=== PATIENT | female | born 1980 | race Caucasian/White ===

== ENCOUNTER 2016-06-15 09:11 | Emergency (ER) | payer OTHER ==
[~2016-06-15] VITALS: Ht 154.9 cm; Wt 86.2 kg
[~2016-06-15 09:11] MED LIST: ALBUTEROL0.09 MG/A2 INH; BENADRYL 50 MG50 MG PO; BENTYL 10 MG CA10 MG PO; BENTYL20 MG PO; BENZTROPINE MESY1 M1 PO; BENZTROPINE MESY1 MG PO; BENZTROPINE1 MG PO; BIAXIN FILMTAB500 MG PO; BUSPIRONE HCL30 M1 PO; CATAPRES 0.1MG0.1 MG PO; CLONIDINE HCL0.1 MG PO; CLONIDINE0.1 MG PO; DILAUDID2 MG PO; ENDOCET 325 MG-1 TA1 PO; FLUOXETINE HCL20 M2 PO; INVEGA6 MG PO; LEVOTHYROXIN0.025 M1 PO; LEVOXYL75 MCG PO; LINZESS145 MC1 PO; LIORESAL 10MG T10 MG PO; LITHIUM CARBON300 M3 PO; LORAZEPAM1 M1 PO; MEDROL DOSEPAK1 PAC PO; MELATONIN1 MG PO; MELATONIN3 MG PO; MOTRIN 600 MG600 MG PO; MOTRIN600 MG PO; NORCO 325 MG-51 TAB PO; NYSTATIN100000 U/M PO; OXYCODONE5 M1 PO; PANTOPRAZOLE SO40 M1 PO; PERCOCET 325 MG1 TA2 PO; PRAVASTATIN SOD20 M2 PO; PREDNISONE 20MG20 MG PO; PROAIR HFA0.09 MG/Ac PO; PYRIDIUM100 MG PO; QUETIAPINE FUM300 MG PO; QUETIAPINE FUM400 M1 PO; TRI-PREVIFEM 351 TAB PO; TYLENOL #31 TAB PO; VICODIN5-300 PO; ZOLPIDEM TARTRA10 M1 PO
--- NOTE | 2016-06-15 09:32 | ED INFLUENZA/URI COMPLAINT ---
History of Present Illness General Chief Complaint: Upper Respiratory Sx/Fever Stated Complaint: URI AND MANY OTHER PAIN COMPLAINTS Source: patient, old records Exam Limitations: no limitations Vital Signs & Intake/Output Vital Signs & Intake/Output Vital Signs Date Time Temp Pulse Resp B/P Pulse O2 O2 Flow FiO2 Ox Delivery Rate 06/15 1214 80 18 122/82 99 Room Air 06/15 1111 98.0 85 18 120/78 98 Room Air 06/15 0915 98.0 102 16 113/81 97 Room Air Allergies Coded Allergies: Penicillins (Intermediate, HIVES 08/03/15) amoxicillin (Intermediate, HIVES 08/03/15) shellfish derived (Intermediate, HIVES 08/03/15) ciprofloxacin (From CIPRO) (Mild, RASH 08/03/15) guaifenesin (From MUCINEX) (Mild, RASH 08/03/15) dextromethorphan (ITCHY, RASH, HIVES 08/03/15) sulfamethoxazole (From BACTRIM) (HIVES 08/03/15) trimethoprim (From BACTRIM) (HIVES 08/03/15) Reconcile Medications Benzonatate (Tessalon Perle) 100 MG CAPSULE 1 CAP PO TID PRN COUGH Benztropine Mesylate 1 MG TABLET 1 TAB PO BID SIDE EFFECTS OF SEROQUEL ( Reported) Buspirone HCl 30 MG TABLET 1 TAB PO BID BIPOLAR (Reported) Clarithromycin (Biaxin) 500 MG TABLET 1 TAB PO BID BRONCHITIS Clonidine HCl 0.1 MG TABLET 1 TAB PO BID MENTAL HEALTH (Reported) Fenofibric Acid (Trilipix) 135 MG CAPSULE.DR 1 CAP PO DAILY TRIGLYCERIDES ( Reported) Fluoxetine HCl 20 MG CAPSULE 1 CAP PO DAILY OCD (Reported) Levothyroxine Sodium (Levoxyl) 75 MCG TABLET 1 TAB PO DAILY AC THYROID ( Reported) Linaclotide (Linzess) 145 MCG CAPSULE 1 CAP PO DAILY IBS (Reported) Lorazepam 1 MG TABLET 1 TAB PO TID ANXIETY (Reported) Oxycodone HCl/Acetaminophen (Percocet 5-325 MG Tablet) 5 MG-325 MG TABLET 1 TAB PO BID BREAKTHROUGH PAIN Paliperidone (Invega) 6 MG TAB.ER.24 1 TAB PO QPM MENTAL HEALTH (Reported) Pantoprazole Sodium 40 MG TABLET.DR 1 TAB PO DAILY GI (Reported) Pravastatin Sodium 20 MG TABLET 1 TAB PO DAILY CHOLESTEROL (Reported) Pregabalin (Lyrica) 225 MG CAPSULE 1 CAP PO BID PAIN (Reported) Quetiapine Fumarate 400 MG TABLET 1 TAB PO QPM MENTAL HEALTH (Reported) Zolpidem Tartrate 10 MG TABLET 1 TAB PO QPM SLEEP (Reported) Triage Note: PT STATES SHE HAS A NUMBER OF THINGS WRONG WITH HER TODAY. PT STATES SHE HAS A COUGH THAT MAKES HER HEAD POUND. PT STATES SHE HAS KIDNEY PAIN AND PAIN FROM HER ENDOMETRIOSIS. Triage Nurses Notes Reviewed? yes Onset: Gradual Duration: day(s): (2), constant Timing: recent history Severity: mild, moderate Severity Numbers: 5 No Modifying Factors: none Associated Symptoms: cough, muscle aches, nasal congestion : No Patient currently breastfeeds: No HPI: 36-year-old female with history of recurrent kidney infections bipolar anxiety fibromyalgia and endometriosis presents to emergency room complaining of a productive cough associated with congestion and sore throat for the past 2 days for which she has not sought care or taken any brxt-jok-yvcrlut medications. She denies fever chills or reports a multiple sick contacts at home with similar symptoms. No recent dental work no difficulty breathing or swallowing. No history of asthma she does not smoke no chest pain. The patient is also complaining of an exacerbation of her chronic abdominal pain left lower quadrant she that she states is constantly there however more painful than normal. Her menstrual cycle is now, she is normally followed by her primary care physician for her endometriosis and states this feels similar. She took Motrin for the pain without improvement. She reports that she's been seen here multiple times in the past for similar symptoms and was prescribed pain medication that helped. She is also complaining of right flank pain, she denies any urinary urgency frequency dysuria hematuria. (ANNA AGVIN) Past History Travel History Traveled to [place] past 21 day No Medical History Any Pertinent Medical History? 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 No (ANNA GAVIN) Review of Systems Review of Systems Constitutional: Reports: see HPI. All Other Systems: Reviewed and Negative Comments Review of systems: See HPI, All other systems negative. Constitutional, no chills no fever, no malaise HEENT: No visual changes sore throat congestion, no ear pain Cardiovascular: No chest pain , no palpitation , Skin, no rashes, no change in skin Respiratory: No dyspnea cough no sputum no hemoptysis GI: No nausea no vomiting, no diarrhea, no bloating/constipation : No dysuria No hematuria, no frequency, no discharge Muscle skeletal: No joint pain, no joint swelling, back pain, no neck pain, Neurologic: No numbness no headache Psych: No stress no anxiety no depression,. Heme/endocrine: No bruising no bleeding Immunology: No lymphadenopathy (ANNA GAVIN) Physical Exam Physical Exam General Appearance: well developed/nourished, alert, awake Ears, Nose, Throat: normal ENT inspection, moist mucous membrane, hearing grossly normal, Tympanic normal, pharynx normal Comments: Well-developed well-nourished person in no acute distress Head/Face: Atraumatic, no maxillary/frontal sinus tenderness, no facial swelling Eyes: PERRL, EOMI, no conjunctival injection. No nystagmus Ear:External auditory canal and Tympanic membranes clear, no erythema, no FB. Nose: atraumatic.Normal inspection: No bleeding, no septal hematoma Throat: Moist mucous membranes.Pharynx normal. No pharyngeal erythema/exudate seen. No stridor/drooling or assymetry. No swelling or edema. Neck: Supple, no lymphadenopathy, FROM Back: Nontender, R SIDED CVA tenderness. Full range of motion Cardiovascular: Regular rate and rhythms no murmurs rubs or gallops, normal JVP Respiratory: Chest nontender.There were no bony deformities, no asymmetry. No respiratory distress. Patient speaking in full complete sentences. Breath sounds clear to auscultation bilaterally: NO W/R/R Abdomen: Soft, nontender nondistended, no appreciable organomegaly. Normal bowel sounds. No rebound/guarding, Extremity: No edema, full range of motion of extremities, normal and equal pulses bilaterally, 5 out of 5 strength noted to bilateral upper and lower extremities Neuro: Alert oriented x3, motor sensory normal,There were no obvious focal neurologic abnormalities. Skin: No appreciable rash on exposed skin, skin is warm and dry. Psych: Mood and affect is normal, memory and judgment is normal. Core Measures Severe Sepsis Present: No Septic Shock Present: No (ANNA GAVIN) Progress Differential Diagnosis: influenza, otitis, pneumonia, pharyngitis, sinusitis, BRONCHITIS, PYELO, UTI, , ECTOPIC, CHRONIC ABD PAIN, ENDOMETRIOSIS Plan of Care: Orders Procedure Date/time Status URINE 06/15 935 Complete URINALYSIS 06/15 935 Complete Laboratory Tests 06/15/16 1104: Urine Color YEL, Urine Clarity CLEAR, Urine pH 6.5, Ur Specific [place] 1.020, Urine Protein NEG, Urine Ketones NEG, Urine Nitrite NEG, Urine Bilirubin NEG, Urine Urobilinogen 0.2, Ur Leukocyte Esterase NEG, Ur Microscopic EXAM NOT REQUIRED, Urine Hemoglobin NEG, Urine Glucose NEG, Urine Test NEGATIVE Labs ordered Percocet 1 ordered. Old records read patient is seen numerous times the past for similar symptoms., I discussed with her at length that I do not believe she requires an x-ray or blood work at this time patient's pain is chronic in nature and is not worse she denies any nausea vomiting diarrhea fevers or chills After patient was medicated Percocet she states that she cannot urinate at this time and does not want to to stay to wait. Patient is provided with water and I advised her given her history of recurrent kidney infections and right flank pain that we need a urine sample . I discussed with her her lab results and that she follow up with her primary care physician this week prescription for Percocet and BIAXIN and and Tessalon Perles provided (ANNA GAVIN) Initial ED EKG: none (ANNA GAVIN) Departure Departure Time of Disposition: 1010 Disposition: HOME OR SELF CARE Condition: Stable Clinical Impression Primary Impression: Bronchitis Secondary Impressions: Chronic abdominal pain Referrals: RODRIGO DOYLE (PCP/Family) Additional Instructions: FOLLOW UP WITH YOUR PMD THIS WEEK. BIAXIN DIRECTED, TESSALON PERLES FOR COUGH. PERCOCET FOR BREAKTHROUGH PAIN- USE CAUTION THIS IS A NARCOTIC AND HIGHLY ADDICTIVE- NO DRIVING OR DRINKING ALCOHOL WHILE TAKING. THESE MEDICATIONS WERE SENT TO YOUR PHARMACY. CONTINUE TAKING IBUPROFEN 800MG EVERY 8 HOURS. Departure Forms: Customer Survey General Discharge Information Prescriptions: Current Visit Scripts Oxycodone HCl/Acetaminophen (Percocet 5-325 MG Tablet) 1 TAB PO BID #10 TAB Benzonatate (Tessalon Perle) 1 CAP PO TID PRN COUGH #30 CAP Clarithromycin (Biaxin) 1 TAB PO BID #14 TAB (ANNA GAVIN) PA/LOWER SCHOOL MUSIC TEACHER Co-Sign Statement Statement: ED Attending supervision documentation- [] I saw and evaluated the patient. I have also reviewed all the pertinent lab results and diagnostic results. I agree with the findings and the plan of care as documented in the PA's/LOWER SCHOOL MUSIC TEACHER's documentation. x I have reviewed the ED Record and agree with the PA's/LOWER SCHOOL MUSIC TEACHER's documentation. [] Additions or exceptions (if any) to the PAs/LOWER SCHOOL MUSIC TEACHER's note and plan are summarized below: [] (DRAYA GATICA,MARTA)
[2016-06-15] MEDS ORDERED: PERCOCET 5-3251 EACH PO (10:14)
[2016-06-15] MEDS ORDERED: BIAXIN500 M1 PO (10:14)
[2016-06-15] MEDS ORDERED: TESSALON PERLE100 M1 PO (10:14)
[2016-06-15] MEDS ORDERED: LYRICA225 M1 PO (10:20)
[2016-06-15] MEDS ORDERED: TRILIPIX135 M1 PO (10:21)
[2016-06-15 12:14] VITALS: BP 122/82
[2016-10-23] MEDS ORDERED: ZOFRAN4 M2 PO (13:27)
[2016-10-23] MEDS ORDERED: KETOROLAC TROME10 M1 PO (13:27)
== END 2016-06-15 10:11 ==
LOC: ERH 09:11
DX: J40 Bronchitis, not specified as acute or chronic (principal); G89.29 Other chronic pain; R10.32 Left lower quadrant pain; Z87.891 Personal history of nicotine dependence
CPT/HCPCS: 81003; 81025

== ENCOUNTER 2016-07-09 14:37 | Emergency (ER) | payer OTHER ==
[~2016-07-09] VITALS: Ht 154.9 cm; Wt 86.2 kg
[~2016-07-09 14:37] MED LIST changes: +BIAXIN500 M1 PO; +LYRICA225 M1 PO; +PERCOCET 5-3251 EACH PO; +TESSALON PERLE100 M1 PO; +TRILIPIX135 M1 PO
[2016-07-09 14:40] VITALS: BP 127/86
--- NOTE | 2016-07-09 15:25 | ED GENERAL ADULT ---
History of Present Illness General Chief Complaint: General Adult Stated Complaint: NAUSEA Source: patient, old records Exam Limitations: no limitations Vital Signs & Intake/Output Vital Signs & Intake/Output Vital Signs Date Time Temp Pulse Resp B/P Pulse O2 O2 Flow FiO2 Ox Delivery Rate 07/09 1440 96.2 86 18 127/86 98 Room Air Room Air Allergies Coded Allergies: Penicillins (Intermediate, HIVES 08/03/15) amoxicillin (Intermediate, HIVES 08/03/15) shellfish derived (Intermediate, HIVES 08/03/15) ciprofloxacin (From CIPRO) (Mild, RASH 08/03/15) guaifenesin (From MUCINEX) (Mild, RASH 08/03/15) dextromethorphan (ITCHY, RASH, HIVES 08/03/15) sulfamethoxazole (From BACTRIM) (HIVES 08/03/15) trimethoprim (From BACTRIM) (HIVES 08/03/15) Reconcile Medications Benztropine Mesylate 1 MG TABLET 1 TAB PO BID SIDE EFFECTS OF SEROQUEL ( Reported) Buspirone HCl 30 MG TABLET 1 TAB PO BID BIPOLAR (Reported) Clonidine HCl 0.1 MG TABLET 1 TAB PO BID MENTAL HEALTH (Reported) Fenofibric Acid (Trilipix) 135 MG CAPSULE.DR 1 CAP PO DAILY TRIGLYCERIDES ( Reported) Fluoxetine HCl 20 MG CAPSULE 1 CAP PO DAILY OCD (Reported) Hyoscyamine (Levsin) 0.125 MG TABLET 1 TAB PO Q4 PRN abdominal discomfort Levothyroxine Sodium (Levoxyl) 75 MCG TABLET 1 TAB PO DAILY AC THYROID ( Reported) Linaclotide (Linzess) 145 MCG CAPSULE 1 CAP PO DAILY IBS (Reported) Lorazepam 1 MG TABLET 1 TAB PO TID ANXIETY (Reported) Nystatin 100,000 UNIT/ML ORAL.SUSP 5 ML PO 4 TIMES/DAY thrush Ondansetron (Zofran Odt) 4 MG TAB.RAPDIS 1 TAB SL Q8HR PRN nausea Paliperidone (Invega) 6 MG TAB.ER.24 1 TAB PO QPM MENTAL HEALTH (Reported) Pantoprazole Sodium 40 MG TABLET.DR 1 TAB PO DAILY GI (Reported) Pravastatin Sodium 20 MG TABLET 1 TAB PO DAILY CHOLESTEROL (Reported) Pregabalin (Lyrica) 225 MG CAPSULE 1 CAP PO BID PAIN (Reported) Quetiapine Fumarate 400 MG TABLET 1 TAB PO QPM MENTAL HEALTH (Reported) Zolpidem Tartrate 10 MG TABLET 1 TAB PO QPM SLEEP (Reported) Triage Note: TRIAGE: 36 Y/O FEMALE PRESENTS C/O +NAUSEA SINCE MONDAY MORNING. "ALL OVER ABDOMINAL PAIN", POOR PO INTAKE X DAYS, METALLIC TASTE IN MOUTH. "SOMETHING'S WRONG WITH ME, BUT I DON'T KNOW WHAT. IT'S NOT NORMAL." Triage Nurses Notes Reviewed? yes Onset: Gradual Duration: day(s): (4) Timing: recent history Injury Environment: home Severity: moderate Severity Numbers: 7 No Modifying Factors: none Associated Symptoms: nausea : No Patient currently breastfeeds: No HPI: Patient is a 36-year-old female with history of bipolar, depression, anxiety and endometriosis presenting to the emergency Department chief complaint of diffuse abdominal discomfort, nausea Going on for the past 4 days progressively getting worse. Denies any vomiting. Denies diarrhea or constipation. Denies any urinary frequency or urgency or dysuria. Symptoms currently moderate. Nothing seems to make it better or worse. Denies trying to take anything at home to help with nausea. No recent travel or sick contacts. She reports that the pain feels similar to endometriosis pain but worse. She has not seen an NEWS GATHERING TECHNICIAN nonpassive areas as her primary care physician does the Pap smears. Denies any vaginal discharge. denies chance of std. (BOAZ RUIZ) Past History Travel History Traveled to [place] past 21 day No Medical History Any Pertinent Medical History? 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 No (BOAZ RUIZ) Review of Systems Review of Systems Constitutional: Reports: chills. Comments Review of systems: See HPI, All other systems negative. Constitutional, no weight loss HEENT: No visual changes no sore throat no congestion Cardiovascular: No chest pain ,palpitation , orthopnea or ankle swelling Skin, no jaundice no rashes Respiratory: No dyspnea cough sputum or hemoptysis GI: No diarrhea no vomiting : No dysuria No hematuria Muscle skeletal: no back pain, no neck pain, Neurologic: No numbness no confusion, no headache Psych: No stress anxiety or depression,. Heme/endocrine: No bruising no bleeding no polyuria or polydipsia Immunology: No splenectomy or history of AIDS (BOAZ RUIZ) Physical Exam Physical Exam General Appearance: no apparent distress, alert, awake, anxious, comfortable, obese Comments: Well-developed well-nourished person in no acute distress HEENT: Pupils equally round and reactive to light and accommodation. Nose is atraumatic. External auditory canal and Tympanic membranes clear. Pharynx normal. No swelling or edema. Very dry oral mucosa, white coating noted over the tongue, unable to remove it with a tongue blade. Neck: Normal inspection Back: Nontender, no CVA tenderness. Full range of motion Cardiovascular: Regular rate and rhythms no murmurs rubs or gallops, normal JVP Respiratory: Chest nontender. No respiratory distress.breath sounds clear to auscultation bilaterally Abdomen: Soft, obese, diffuse tenderness to palpation, more focally tender around the periumbilical and left lower quadrant, nondistended, no appreciable organomegaly. Normal bowel sounds. No ascites Extremity: No edema Neuro: Alert oriented x3 Skin: No appreciable rash on exposed skin, skin is warm and dry. Psych: Mood and affect is normal, memory and judgment is normal. Core Measures ACS in differential dx? No CVA/TIA Diagnosis: No Severe Sepsis Present: No Septic Shock Present: No (BOAZ RUIZ) Progress Differential Diagnoses I considered the following diagnoses in my evaluation of the patient: Gastritis , dehydration, electrolyte abnormality, pancreatitis, cholecystitis, appendicitis, diverticulitis, thrash Plan of Care: Orders Procedure Date/time Status FingerStick- Glucose 07/09 1526 Active URINE 07/09 1526 Complete URINALYSIS 07/09 1526 Complete LIPASE 07/09 1526 Complete COMPREHENSIVE METABOLIC PANEL 07/09 1526 Complete CBC WITHOUT DIFFERENTIAL 07/09 1526 Complete AMYLASE 07/09 1526 Complete Current Medications Sig/Evelio Start time Last Medication Dose Stop Time Status Admin Ondansetron HCl 4 MG ONCE ONE 07/09 1530 CAN (Zofran) 07/09 1531 Laboratory Tests 07/09/16 1641: Urine Color YEL, Urine Clarity HAZY H, Urine pH 6.0, Ur Specific [place] >= 1.030, Urine Protein TRACE H, Urine Ketones TRACE H, Urine Nitrite NEG, Urine Bilirubin NEG, Urine Urobilinogen 0.2, Ur Leukocyte Esterase NEG, Ur Microscopic SEDIMENT EXAMINED, Urine RBC RARE, Urine WBC RARE, Ur Epithelial Cells MANY H, Urine Bacteria MOD H, Urine Mucus MANY H, Urine Hemoglobin NEG, Urine Glucose NEG, Urine Test NEGATIVE 07/09/16 1537: Anion Gap 14, Estimated GFR 51 L, BUN/Creatinine Ratio 7.5, Glucose 84, Calcium 10.1, Total Bilirubin 0.5, AST 29, ALT 29, Alkaline Phosphatase 61, Total Protein 7.9, Albumin 4.7, Globulin 3.2, Albumin/Globulin Ratio 1.5, Amylase < 30 L, Lipase 20 L, CBC w Diff NO MAN DIFF REQ, RBC 4.16 L, MCV 91.7, MCH 31.0, RDW 14.0, MPV 7.7, Gran % 60.1, Lymphocytes % 31.5, Monocytes % 6.7, Eosinophils % 1.3, Basophils % 0.4, Absolute Granulocytes 4.2, Absolute Lymphocytes 2.2, Absolute Monocytes 0.5, Absolute Eosinophils 0.1, Absolute Basophils 0, PUBS MCHC 33.8 Initial ED EKG: none Comments: 07/09/2016 3:36:38 PM pt medicated with IV fluids, Zofran, Toradol and arrival. With this lab work first. Patient has had multiple CT scans over the past several years. 07/09/2016 5:07:29 PM patient is afebrile and no elevation in white blood count that. Blood work is essentially unremarkable. No change from baseline. Likely viral gastritis. Patient will be treated symptomatically. Patient will also be treated for thrush, she'll follow up with the PCP next week or return for worsening symptoms. No clinical indication for imaging at this time. (GILBERT ESPINOSA,BOAZ) Departure Departure Time of Disposition: 1702 Disposition: HOME OR SELF CARE Condition: Stable Clinical Impression Primary Impression: Abdominal pain Qualifiers: Abdominal location: generalized Qualified Code: R10.84 - Generalized abdominal pain Secondary Impressions: Nausea, Thrush Referrals: RODRIGO DOYLE (PCP/Family) Additional Instructions: Follow-up with your primary care physician call to make an appointment. Increase fluids. Take Zofran asks For nausea, take Levsin as prescribed abdominal discomfort. Return for worsening symptoms or concerns. Departure Forms: Customer Survey D/C INS-APPENDICITIS EXCLUSION General Discharge Information Prescriptions: Current Visit Scripts Ondansetron (Zofran Odt) 1 TAB SL Q8HR PRN nausea #10 TAB Hyoscyamine (Levsin) 1 TAB PO Q4 PRN abdominal discomfort #30 TAB Nystatin 5 ML PO 4 TIMES/DAY #200 ML (BOAZ RUIZ) PA/PANEL EDGE SEALER Co-Sign Statement Statement: ED Attending supervision documentation- [] I saw and evaluated the patient. I have also reviewed all the pertinent lab results and diagnostic results. I agree with the findings and the plan of care as documented in the PA's/PANEL EDGE SEALER's documentation. x I have reviewed the ED Record and agree with the PA's/PANEL EDGE SEALER's documentation. [] Additions or exceptions (if any) to the PAs/PANEL EDGE SEALER's note and plan are summarized below: [] (DARYA GATICA,MARTA) Critical Care Note Critical Care Note Critical Care Time: non-applicable (BOAZ RUIZ)
[2016-07-09 15:58] LABS: ABSOLUTE BASOPHIL COUNT 0 /CUMM (0.0-0.2); ABSOLUTE EOSINOPHIL COUNT 0.1 /CUMM (0.0-0.7); ABSOLUTE GRANULOCYTE CT 4.2 /CUMM (1.4-6.5); ABSOLUTE LYMPH COUNT 2.2 /CUMM (1.2-3.4); ABSOLUTE MONOCYTE COUNT 0.5 /CUMM (0.10-0.60); BASOPHIL % 0.4 % (0.0-2.0); EOSINOPHIL % 1.3 % (0-5); GRANULOCYTE % 60.1 % (42.2-75.2); HEMATOCRIT 38.2 % (37-47); MEAN CORPUSCULAR HGB CONC 33.8 G/DL (33.0-37.0); MEAN CORPUSCULAR VOLUME 91.7 FL (81.0-99.0); MEAN PLATELET VOLUME 7.7 FL (7.4-10.4); PLATELET COUNT 331 /CUMM (130-400); RED BLOOD CELL CT 4.16 /CUMM (4.20-5.40); WHITE BLOOD CELL COUNT 7.1 /CUMM (4.8-10.8)
[2016-07-09] MEDS ORDERED: NYSTATIN100000 UNI PO (17:05)
[2016-07-09] MEDS ORDERED: LEVSIN0.125 M1 PO (17:05)
[2016-07-09] MEDS ORDERED: ZOFRAN ODT4 M1 SL (17:05)
[2016-10-23] MEDS ORDERED: KETOROLAC TROME10 M1 PO (13:27)
[2016-10-23] MEDS ORDERED: ZOFRAN4 M2 PO (13:27)
== END 2016-07-09 17:22 ==
LOC: ERH 14:37
PROVIDERS: Physician Assistant
DX: R10.84 Generalized abdominal pain (principal); R11.0 Nausea; B37.0 Candidal stomatitis
CPT/HCPCS: 81001; 81025; 96361; 96374; 96375; J1885; J2405

== ENCOUNTER 2016-07-13 15:21 | Emergency (ER) | payer OTHER ==
[~2016-07-13] VITALS: Ht 154.9 cm; Wt 86.2 kg
[~2016-07-13 15:21] MED LIST changes: +LEVSIN0.125 M1 PO; +NYSTATIN100000 UNI PO; +ZOFRAN ODT4 M1 SL
--- NOTE | 2016-07-13 17:33 | ED GI/GU/ABDOMINAL COMPLAINT ---
History of Present Illness General Chief Complaint: Abdominal Pain/Flank Pain Stated Complaint: N/V, ABD PAIN Source: patient, old records Exam Limitations: no limitations Vital Signs & Intake/Output Vital Signs & Intake/Output Vital Signs Date Time Temp Pulse Resp B/P Pulse O2 O2 Flow FiO2 Ox Delivery Rate 07/13 1802 98.4 60 16 126/68 97 Room Air 07/13 1554 98.2 85 20 134/83 97 Room Air Room Air Allergies Coded Allergies: Penicillins (Intermediate, HIVES 07/13/16) amoxicillin (Intermediate, HIVES 07/13/16) shellfish derived (Intermediate, HIVES 07/13/16) ciprofloxacin (From CIPRO) (Mild, RASH 07/13/16) guaifenesin (From MUCINEX) (Mild, RASH 07/13/16) dextromethorphan (ITCHY, RASH, HIVES 07/13/16) sulfamethoxazole (From BACTRIM) (HIVES 07/13/16) trimethoprim (From BACTRIM) (HIVES 07/13/16) Reconcile Medications Benztropine Mesylate 1 MG TABLET 1 TAB PO BID SIDE EFFECTS OF SEROQUEL ( Reported) Buspirone HCl 30 MG TABLET 1 TAB PO BID BIPOLAR (Reported) Ciprofloxacin HCl (Cipro) 500 MG TABLET 1 TAB PO BID COLITIS Clonidine HCl 0.1 MG TABLET 1 TAB PO BID MENTAL HEALTH (Reported) Fenofibric Acid (Trilipix) 135 MG CAPSULE.DR 1 CAP PO DAILY TRIGLYCERIDES ( Reported) Fluoxetine HCl 20 MG CAPSULE 1 CAP PO DAILY OCD (Reported) Hyoscyamine (Levsin) 0.125 MG TABLET 1 TAB PO Q4 PRN abdominal discomfort Levothyroxine Sodium (Levoxyl) 75 MCG TABLET 1 TAB PO DAILY AC THYROID ( Reported) Linaclotide (Linzess) 145 MCG CAPSULE 1 CAP PO DAILY IBS (Reported) Lorazepam 1 MG TABLET 1 TAB PO TID ANXIETY (Reported) Metronidazole (Flagyl) 500 MG TABLET 1 TAB PO TID COLITIS Nystatin 100,000 UNIT/ML ORAL.SUSP 5 ML PO 4 TIMES/DAY thrush Ondansetron (Zofran Odt) 4 MG TAB.RAPDIS 1 TAB SL TID NAUSEA Ondansetron (Zofran Odt) 4 MG TAB.RAPDIS 1 TAB SL Q8HR PRN nausea Oxycodone HCl/Acetaminophen (Percocet 5-325 MG Tablet) 5 MG-325 MG TABLET 1 TAB PO BID pain Paliperidone (Invega) 6 MG TAB.ER.24 1 TAB PO QPM MENTAL HEALTH (Reported) Pantoprazole Sodium 40 MG TABLET.DR 1 TAB PO DAILY GI (Reported) Pravastatin Sodium 20 MG TABLET 1 TAB PO DAILY CHOLESTEROL (Reported) Pregabalin (Lyrica) 225 MG CAPSULE 1 CAP PO BID PAIN (Reported) Quetiapine Fumarate 400 MG TABLET 1 TAB PO QPM MENTAL HEALTH (Reported) Zolpidem Tartrate 10 MG TABLET 1 TAB PO QPM SLEEP (Reported) Triage Note: PT RETURNS TO ED WITH C/O NAUSEA, VOMITING NO BM X 1 WEEK, SEEN HERE ON MONDAY HAD BLOODWORK,URINE AND IVF'S, NAUSEA MEDS, ZOFRAN AND TORADOL, "FELT A LITTLE BETTER AND WENT HOME. Triage Nurses Notes Reviewed? yes ? N Is pt currently ? No Onset: Abrupt Duration: day(s):, constant, continues in ED Timing: recent history Quality/Severity: moderate, sharpness, severe Location: generalized abdomen Radiation: no radiation No Modifying Factors: none HPI: 36-year-old female comes into emergency room for evaluation of abdominal pain nausea vomiting. Patient symptoms have been going on for about a week. Patient was seen here this past weekend on Monday and discharged home. Patient reports that her pain has gotten worse. Patient reports an associated pounding headache. Chills. Nausea. Patient can't keep any liquids down. Patient has not been able to eat anything. Denies any changes in bowel movement. Denies any urinary symptoms. (RUPAL ROLLINS) Past History Travel History Traveled to [place] past 21 day No Medical History Any Pertinent Medical History? 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 No (RUPAL ROLLINS) Review of Systems Review of Systems Constitutional: Reports: no symptoms. EENTM: Reports: no symptoms. Respiratory: Reports: no symptoms. Cardiovascular: Reports: no symptoms. GI: Reports: see HPI. Genitourinary: Reports: see HPI. Musculoskeletal: Reports: no symptoms. Skin: Reports: no symptoms. Neurological/Psychological: Reports: no symptoms. Hematologic/Endocrine: Reports: no symptoms. Immunologic/Allergic: Reports: no symptoms. All Other Systems: Reviewed and Negative (RUPAL ROLLINS) Physical Exam Physical Exam General Appearance: well developed/nourished, no apparent distress, alert Head: atraumatic, normal appearance Eyes: Bilateral: normal appearance, EOMI. Ears, Nose, Throat, Mouth: hearing grossly normal, moist mucous membrane Neck: normal inspection, full range of motion Respiratory: normal breath sounds, chest non-tender, no respiratory distress Cardiovascular: regular rate/rhythm Gastrointestinal: normal bowel sounds, soft, tenderness Back: normal inspection Extremities: normal range of motion Neurologic/Psych: awake, alert, oriented x 3, normal gait, normal mood/affect Skin: intact, normal color Core Measures ACS in differential dx? No Severe Sepsis Present: No Septic Shock Present: No (RUPAL ROLLINS) Progress Differential Diagnosis: AAA, appendicitis, biliary colic, bowel obstruction, cholecystitis, diverticulitis, ectopic , endometritis, gastritis, hepatitis, hernia, ischemic bowel, inflamm bowel dis, kidney stone, Jaquelin-Kevin tear, ovarian cyst, ovarian torsion, pancreatitis, PID/cervicitis, peptic ulcer, PUD/GERD, perforated viscous, UTI/pyelo Diagnostic Imaging: Viewed by Me: CT Scan. Discussed w/RAD: CT Scan. Radiology Impression: SERVICE DATE: 07/13/16-1710 EXAM TYPE: CAT - CT ABD & PELVIS W IV CONTRAST EXAMINATION: CT ABDOMEN AND PELVIS WITH CONTRAST CLINICAL INFORMATION: Abdominal pain. COMPARISON: CT abdomen and pelvis with contrast . TECHNIQUE: Multidetector volumetric imaging was performed of the abdomen and pelvis before and after the IV administration of 95 mL of Optiray 320 intravenous contrast. Sagittal and coronal reformatted images were obtained on the technologist's workstation. DLP: 1067 mGy-cm FINDINGS: LUNG BASES: Evaluation of the included lung bases demonstrates bibasilar and right middle lobe subsegmental atelectasis. No pleural or pericardial effusions are identified. LIVER, GALLBLADDER, AND BILIARY TREE: The liver is normal in size, shape, and attenuation. There is a tiny 4 mm hypoattenuating lesion within the left hepatic lobe, which is too small to further characterize but likely technical sales representatives of a small hepatic cyst. No enhancing hepatic lesion or biliary ductal dilatation is present. The gallbladder is unremarkable with no evidence of radiopaque gallstones, gallbladder wall thickening, or obvious pericholecystic inflammatory changes. PANCREAS: Unremarkable. SPLEEN: Unremarkable. ADRENAL GLANDS: Unremarkable. KIDNEYS AND URETERS: The kidneys are normal in size and enhance homogeneously, without focal lesions. There is no appreciable nephrolithiasis or hydroureteronephrosis of either kidney or renal collecting system. No ureteral stones are identified. BLADDER: Unremarkable. GASTROINTESTINAL TRACT: Evaluation of the gastrointestinal system demonstrates mild circumferential thickening and pericolonic inflammatory changes surrounding the rectosigmoid colon. This finding is nonspecific but could reflect an infectious or inflammatory colitis. There is normal anatomic orientation of the stomach relative to the duodenum. Abdominal and pelvic bowel loops are normal in caliber, without evidence of obstruction or ileus. A normal-appearing appendix is visualized within the right lower quadrant of the abdomen. No organizing intra-abdominal fluid collections or free intraperitoneal air. ABDOMINAL WALL: No significant hernia is appreciated. LYMPH NODES: No significant abdominal or pelvic adenopathy. VASCULAR: Patent abdominal vasculature. Normal course and caliber of the abdominal aorta and its branching vessels, without aneurysmal dilatation. PELVIC VISCERA: Unremarkable. OSSEOUS STRUCTURES: No acute osseous abnormality. Normal alignment of the imaged thoracolumbar spine. IMPRESSION: Circumferential thickening and pericolonic inflammatory changes surrounding the rectosigmoid colon. This finding is nonspecific but could reflect an infectious or inflammatory colitis. No additional acute findings are identified within the abdomen or pelvis. DICTATED BY: ALBER BOATENG MD DATE/TIME DICTATED:07/13/161834 LOIN PULLER:MEREDITH DATE/TIME TRANSCRIBED:07/13/161834 Initial ED EKG: none (RUPAL ROLLINS) Plan of Care: Orders Procedure Date/time Status URINE 07/14 1707 Complete URINALYSIS 07/14 1707 Complete LIPASE 07/14 1707 Complete COMPREHENSIVE METABOLIC PANEL 07/14 1707 Complete CBC WITHOUT DIFFERENTIAL 03/08 1708 Complete AMYLASE 07/13 1708 Complete Laboratory Tests 07/13/16 1731: Anion Gap 13, Estimated GFR 51 L, BUN/Creatinine Ratio 6.7 L, Glucose 81, Calcium 10.1, Total Bilirubin 0.5, AST 26, ALT 32, Alkaline Phosphatase 60, Total Protein 7.6, Albumin 4.6, Globulin 3.0, Albumin/Globulin Ratio 1.5, Amylase < 30 L, Lipase 24, CBC w Diff NO MAN DIFF REQ, RBC 4.01 L, MCV 92.0, MCH 30.4, RDW 14.3, MPV 7.3 L, Gran % 58.5, Lymphocytes % 33.0, Monocytes % 6.7 , Eosinophils % 1.2, Basophils % 0.6, Absolute Granulocytes 4.5, Absolute Lymphocytes 2.6, Absolute Monocytes 0.5, Absolute Eosinophils 0.1, Absolute Basophils 0, PUBS MCHC 33.0 07/13/16 1726: Urine Color YEL, Urine Clarity CLEAR, Urine pH 6.0, Ur Specific [place] 1.025, Urine Protein NEG, Urine Ketones NEG, Urine Nitrite NEG, Urine Bilirubin NEG, Urine Urobilinogen 0.2, Ur Leukocyte Esterase NEG, Ur Microscopic EXAM NOT REQUIRED, Urine Hemoglobin NEG, Urine Glucose NEG, Urine Test NEGATIVE Departure Departure Disposition: HOME OR SELF CARE Condition: Stable Clinical Impression Primary Impression: Colitis Secondary Impressions: Abdominal pain Referrals: RODRIGO DOYLE (PCP/Family) OFELIA GATICA,RICHELLE Velasquez Additional Instructions: Take ciprofloxacin, Zofran ODT, Flagyl, and Percocet as prescribed. Follow-up with manager social responsibility provided for further evaluation. Return if any concerns worsening symptoms. Please go over all results of today's visit with your primary care doctor. Contact your primary care doctor to let them know you were here in the emergency room. There may be nonspecific findings which may not be related to your visit today here in the emergency room but may require further evaluation and chronic monitoring by your primary care doctor. If you had a laceration today the chance of foreign body always remains. You should follow-up with your primary care doctor for recheck in 3-5 days for a wound check. If you had an x-ray done there is a chance that a fracture could have been missed on initial read and you should follow-up with your primary care doctor for repeat x-rays if symptoms persist. If your blood pressure was elevated here in the emergency room please have rechecked by her primary care doctor within the next 48 hours by your primary care doctor. If you were prescribed a narcotic here in the emergency room or any type of controlled substances you're not allowed to drive while taking this medication or operate any type of heavy machinery. Narcotics can make you feel lightheaded dizziness nausea and can cause constipation. You may need to machine pecan picker a stool softener. Thank you for choosing [facility] emergency room. Please return to the emergency room immediately if you have any other concerns worsening of symptoms. Departure Forms: Customer Survey General Discharge Information Prescriptions: Current Visit Scripts Oxycodone HCl/Acetaminophen (Percocet 5-325 MG Tablet) 1 TAB PO BID #10 TAB Metronidazole (Flagyl) 1 TAB PO TID #21 TAB Ciprofloxacin HCl (Cipro) 1 TAB PO BID #14 TAB Ondansetron (Zofran Odt) 1 TAB SL TID #15 TAB Comments 07/13/2016 8:20:56 PM Patient clinically looks well. Nontoxic-appearing. In no apparent distress. Resting comfortably in room. Patient referred to manager social responsibility. Return to the emergency room immediately if any other concerns worsening symptoms. Case discussed with Dr. Jaime. Patient understands and agrees a plan of care. Feels better after medications are an emergency. (RUPAL ROLLINS) PA/WEBBING SUPERVISOR Co-Sign Statement Statement: ED Attending supervision documentation- [] I saw and evaluated the patient. I have also reviewed all the pertinent lab results and diagnostic results. I agree with the findings and the plan of care as documented in the PA's/WEBBING SUPERVISOR's documentation. [X] I have reviewed the ED Record and agree with the PA's/WEBBING SUPERVISOR's documentation. [] Additions or exceptions (if any) to the PAs/WEBBING SUPERVISOR's note and plan are summarized below: [] (GERHARD GATICA,NICOLETTE)
[2016-07-13 17:55] LABS: ABSOLUTE BASOPHIL COUNT 0 /CUMM (0.0-0.2); ABSOLUTE EOSINOPHIL COUNT 0.1 /CUMM (0.0-0.7); ABSOLUTE GRANULOCYTE CT 4.5 /CUMM (1.4-6.5); ABSOLUTE LYMPH COUNT 2.6 /CUMM (1.2-3.4); ABSOLUTE MONOCYTE COUNT 0.5 /CUMM (0.10-0.60); BASOPHIL % 0.6 % (0.0-2.0); EOSINOPHIL % 1.2 % (0-5); GRANULOCYTE % 58.5 % (42.2-75.2); HEMATOCRIT 36.9 % (37-47); MEAN CORPUSCULAR HGB 30.4 PG (27.0-31.0); MEAN PLATELET VOLUME 7.3 FL (7.4-10.4); PLATELET COUNT 358 /CUMM (130-400); RBC DISTRIBUTION WIDTH 14.3 % (11.5-14.5); RED BLOOD CELL CT 4.01 /CUMM (4.20-5.40); WHITE BLOOD CELL COUNT 7.8 /CUMM (4.8-10.8)
--- NOTE | 2016-07-13 18:51 | CT SCAN REPORT ---
EXAMINATION: CT ABDOMEN AND PELVIS WITH CONTRAST CLINICAL INFORMATION: Abdominal pain. COMPARISON: CT abdomen and pelvis with contrast 12/24/2014. TECHNIQUE: Multidetector volumetric imaging was performed of the abdomen and pelvis before and after the IV administration of 95 mL of Optiray 320 intravenous contrast. Sagittal and coronal reformatted images were obtained on the technologist's workstation. DLP: 1067 mGy-cm FINDINGS: LUNG BASES: Evaluation of the included lung bases demonstrates bibasilar and right middle lobe subsegmental atelectasis. No pleural or pericardial effusions are identified. LIVER, GALLBLADDER, AND BILIARY TREE: The liver is normal in size, shape, and attenuation. There is a tiny 4 mm hypoattenuating lesion within the left hepatic lobe, which is too small to further characterize but likely traveling sales representative of a small hepatic cyst. No enhancing hepatic lesion or biliary ductal dilatation is present. The gallbladder is unremarkable with no evidence of radiopaque gallstones, gallbladder wall thickening, or obvious pericholecystic inflammatory changes. PANCREAS: Unremarkable. SPLEEN: Unremarkable. ADRENAL GLANDS: Unremarkable. KIDNEYS AND URETERS: The kidneys are normal in size and enhance homogeneously, without focal lesions. There is no appreciable nephrolithiasis or hydroureteronephrosis of either kidney or renal collecting system. No ureteral stones are identified. BLADDER: Unremarkable. GASTROINTESTINAL TRACT: Evaluation of the gastrointestinal system demonstrates mild circumferential thickening and pericolonic inflammatory changes surrounding the rectosigmoid colon. This finding is nonspecific but could reflect an infectious or inflammatory colitis. There is normal anatomic orientation of the stomach relative to the duodenum. Abdominal and pelvic bowel loops are normal in caliber, without evidence of obstruction or ileus. A normal-appearing appendix is visualized within the right lower quadrant of the abdomen. No organizing intra-abdominal fluid collections or free intraperitoneal air. ABDOMINAL WALL: No significant hernia is appreciated. LYMPH NODES: No significant abdominal or pelvic adenopathy. VASCULAR: Patent abdominal vasculature. Normal course and caliber of the abdominal aorta and its branching vessels, without aneurysmal dilatation. PELVIC VISCERA: Unremarkable. OSSEOUS STRUCTURES: No acute osseous abnormality. Normal alignment of the imaged thoracolumbar spine. IMPRESSION: Circumferential thickening and pericolonic inflammatory changes surrounding the rectosigmoid colon. This finding is nonspecific but could reflect an infectious or inflammatory colitis. No additional acute findings are identified within the abdomen or pelvis.
[2016-07-13] MEDS ORDERED: FLAGYL500 MG PO (19:43)
[2016-07-13] MEDS ORDERED: CIPRO500 M1 PO (19:43)
[2016-07-13] MEDS ORDERED: ZOFRAN ODT4 M1 SL (19:43)
[2016-07-13] MEDS ORDERED: PERCOCET 5-3251 EACH PO (19:43)
[2016-07-13 20:38] VITALS: BP 130/78
[2016-10-23] MEDS ORDERED: ZOFRAN4 M2 PO (13:27)
[2016-10-23] MEDS ORDERED: KETOROLAC TROME10 M1 PO (13:27)
== END 2016-07-13 20:39 ==
LOC: ERH 15:21
PROVIDERS: Physician Assistant Medical
DX: K52.9 Noninfective gastroenteritis and colitis, unspecified (principal); R51 Headache
CPT/HCPCS: 74177; 81003; 81025; 96374; 96375; J1885; J2405

== ENCOUNTER 2016-07-21 15:57 | Emergency (ER) | payer OTHER ==
[~2016-07-21 15:57] MED LIST changes: +CIPRO500 M1 PO; +FLAGYL500 MG PO
[2016-07-21 16:47] LABS: ABSOLUTE BASOPHIL COUNT 0.1 /CUMM (0.0-0.2); ABSOLUTE EOSINOPHIL COUNT 0.1 /CUMM (0.0-0.7); ABSOLUTE GRANULOCYTE CT 4.7 /CUMM (1.4-6.5); ABSOLUTE LYMPH COUNT 2.4 /CUMM (1.2-3.4); ABSOLUTE MONOCYTE COUNT 0.5 /CUMM (0.10-0.60); BASOPHIL % 0.7 % (0.0-2.0); EOSINOPHIL % 1.1 % (0-5); GRANULOCYTE % 60.4 % (42.2-75.2); HEMATOCRIT 37.1 % (37-47); MEAN CORPUSCULAR HGB 30.9 PG (27.0-31.0); MEAN CORPUSCULAR HGB CONC 33.3 G/DL (33.0-37.0); MEAN CORPUSCULAR VOLUME 92.6 FL (81.0-99.0); MEAN PLATELET VOLUME 7.1 FL (7.4-10.4); PLATELET COUNT 319 /CUMM (130-400); RED BLOOD CELL CT 4.01 /CUMM (4.20-5.40); WHITE BLOOD CELL COUNT 7.8 /CUMM (4.8-10.8)
--- NOTE | 2016-07-21 18:27 | ED GI/GU/ABDOMINAL COMPLAINT ---
History of Present Illness General Chief Complaint: Abdominal Pain/Flank Pain Stated Complaint: CONSTIPATION; ABD PAIN Source: patient Exam Limitations: no limitations Allergies Coded Allergies: Penicillins (Intermediate, HIVES 07/13/16) amoxicillin (Intermediate, HIVES 07/13/16) shellfish derived (Intermediate, HIVES 07/13/16) ciprofloxacin (From CIPRO) (Mild, RASH 07/13/16) guaifenesin (From MUCINEX) (Mild, RASH 07/13/16) dextromethorphan (ITCHY, RASH, HIVES 07/13/16) sulfamethoxazole (From BACTRIM) (HIVES 07/13/16) trimethoprim (From BACTRIM) (HIVES 07/13/16) Triage Note: PER PT SEEN X 2 FOR ABD PAIN AND NO BM IN 2 WEEKS HAD CTS AND LABS ALL OK PER PT WENT TO PRIMARY CARE DR TODAY AND TOLD TO COME TO ED. PT AWARE OF WAIT WILL OBTAIN LABS. REPORTS WT OVER 200 LBS Triage Nurses Notes Reviewed? yes ? N Is pt currently ? No HPI: This patient is a 36 year old female who presented to the emergency department today for evaluation of abdominal pain and constipation 2 weeks. The patient reported that she has been seen here in the emergency department twice for the same symptoms. She has a scheduled appointment with the senior pharmacy technician for next week. The patient was diagnosed with colitis and finished her course of Cipro and Flagyl. She reported that her symptoms are not any better. She reported that she has, "all over," abdominal pain, 9 out of 10, which is constant and no palliative factors. She has not had an appetite. She was vomiting last week, but no vomitus this week. Positive nausea. She reported that she has not passed any stool over the last 2 weeks. She denies any fevers, chills, chest pain, difficulty breathing, back pain, urinary symptoms, or any other associated symptom. The patient's her primary care physician today because, "I just can't take it anymore." The primary care physician suggested she come to the emergency department for an abdominal x-ray. (JUSTIN YIP,JOSIAH) Vital Signs & Intake/Output Vital Signs & Intake/Output Vital Signs Date Time Temp Pulse Resp B/P Pulse O2 O2 Flow FiO2 Ox Delivery Rate 07/219 98.0 87 20 140/86 98 Room Air 07/21 1610 97.5 92 22 114/80 97 Room Air Reconcile Medications Benztropine Mesylate 1 MG TABLET 1 TAB PO QAM MENTAL HEALTH (Reported) Benztropine Mesylate 1 MG TABLET 2 TAB PO QPM MENTAL HEALTH (Reported) Buspirone HCl 30 MG TABLET 1 TAB PO BID MENTAL HEALTH (Reported) Cholecalciferol (Vitamin D3) (Vitamin D) (Unknown Strength) CAPSULE (Unknown Dose) PO DAILY SUPPLEMENT (Reported) Clonidine HCl 0.1 MG TABLET 1 TAB PO QAM ANXIETY (Reported) Clonidine HCl 0.1 MG TABLET 3 TAB PO QPM ANXIETY (Reported) Fenofibric Acid (Trilipix) 135 MG CAPSULE.DR 1 CAP PO QAM CHOLESTEROL/ TRIGLYCERIDES (Reported) Fluoxetine HCl 20 MG CAPSULE 1 CAP PO QAM MENTAL HEALTH (Reported) Levothyroxine Sodium 75 MCG TABLET 1 TAB PO DAILY AC THYROID (Reported) Linaclotide (Linzess) 145 MCG CAPSULE 1 CAP PO QAM CONSTIPATION (Reported) Lorazepam (Ativan) 1 MG TABLET 1 TAB PO TID PRN ANXIETY (Reported) Metoclopramide HCl (Reglan) 10 MG TABLET 1 TAB PO 4 TIMES/DAY PRN nausea 30 minutes before meals and bedtime Pantoprazole Sodium 40 MG TABLET.DR 1 TAB PO QAM GI (Reported) Pravastatin Sodium 20 MG TABLET 1 TAB PO QPM CHOLESTEROL (Reported) Quetiapine Fumarate 400 MG TABLET 2 TAB PO QPM MENTAL HEALTH (Reported) Zolpidem Tartrate (Ambien) 10 MG TABLET 1 TAB PO QPM SLEEP (Reported) (MARTA LACKEY MD) Past History Travel History Traveled to [place] past 21 day No Medical History Any Pertinent Medical History? 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 No (JUSTIN YIP,JOSIAH) Review of Systems Review of Systems Constitutional: Reports: no symptoms. EENTM: Reports: no symptoms. Respiratory: Reports: no symptoms. Cardiovascular: Reports: no symptoms. GI: Reports: see HPI. Genitourinary: Reports: no symptoms. Musculoskeletal: Reports: no symptoms. Skin: Reports: no symptoms. Neurological/Psychological: Reports: no symptoms. All Other Systems: Reviewed and Negative (JUSTIN YIP,JOSIAH) Physical Exam Physical Exam Gastrointestinal: normal bowel sounds, soft, no organomegaly, tender to deep palpation in the upper quadrants. no rebound or guarding. no mcburney's point tenderness. negative rovsing and psoas sign. negative troncoso's sign. no masses Comments: Well-developed well-nourished person in no acute distress HEENT: Normal EENT exam, head normocephalic, moist membranes Pupils equally round and reactive to light. Neck: Supple, no lymphadenopathy Back: Normal gait. Normal inspection Cardiovascular: Regular rate and rhythm with no murmurs Respiratory: No respiratory distress. Speaking in full sentences Extremity: Normal equal pulses Neuro: Alert oriented x3, motor sensory normal, cranial nerves II through XII grossly intact. Skin: No appreciable rash on exposed skin, skin is warm and dry. Psych: Mood and affect is normal, memory and judgment is normal. Core Measures ACS in differential dx? No Severe Sepsis Present: No Septic Shock Present: No (JUSTIN YIP,JOSIAH) Progress Differential Diagnosis: AMI, appendicitis, biliary colic, bowel obstruction, colon cancer, cholecystitis, diverticulitis, endometritis, gastritis, hepatitis, ischemic bowel, inflamm bowel dis, intrauterine , kidney stone, ovarian cyst, ovarian torsion, pancreatitis, PID/cervicitis, PUD/GERD, threatened AB, UTI/pyelo Diagnostic Imaging: Viewed by Me: Radiology Read. Discussed w/RAD: Radiology Read. Radiology Impression: PATIENT: TAYLOR MTZ PRESENT AGE: 36 PATIENT ACCOUNT NO: [id number] : 82 LOCATION: [facility] ORDERING PHYSICIAN: JOSIAH ANDERSON PA-C SERVICE DATE: 07/21/16 EXAM TYPE: RAD - [id number] VIEWS EXAMINATION: XR ABDOMEN MULTIPLE VIEWS CLINICAL INDICATION: Constipation. COMPARISON: None TECHNIQUE: Supine upright abdomen FINDINGS: Moderate volume of scattered stool in the colon. Most of the stool is in the cecum and ascending colon at the splenic flexure. No dilated bowel loop. No significant air-fluid level on the upright view. No radiopaque urinary calculus. IMPRESSION: Moderate volume of stool in colon. No acute change of the bowel. DICTATED BY: FAHAD BAH MD DATE/TIME DICTATED:07/21/161949 GEAR SHAVER SET UP OPERATOR:MEREDITH DATE/TIME TRANSCRIBED:07/21/161949 CONFIDENTIAL, DO NOT COPY WITHOUT APPROPRIATE AUTHORIZATION. <Electronically signed in Other Vendor System> SIGNED BY: FAHAD BAH MD 07/21/161954 Initial ED EKG: none Comments: 07/21/2016 8:02:11 PM: I was at the patient's bedside for re-evaluation and to update her on imaging and lab results. No stool burden near the rectum. Patient reported relief of nausea. Pain is now down from a 9 to a 7. Patient will be following-up with senior pharmacy technician. (JUSTIN YIP,JOSIAH) Plan of Care: Orders Procedure Date/time Status Add-on Test (ER Only) 07/21 1803 Active DIRECT BILIRUBIN 07/21 1647 Complete URINE 07/21 1613 Complete URINALYSIS 07/21 1613 Complete LIPASE 07/21 1613 Complete COMPREHENSIVE METABOLIC PANEL 07/21 161 Complete CBC WITHOUT DIFFERENTIAL 07/21 161 Complete AMYLASE 07/21 161 Complete Laboratory Tests 07/21/16 1905: Urine Color YEL, Urine Clarity HAZY H, Urine pH 6.0, Ur Specific [place] 1.020, Urine Protein NEG, Urine Ketones NEG, Urine Nitrite NEG, Urine Bilirubin NEG, Urine Urobilinogen 1.0, Ur Leukocyte Esterase TRACE H, Ur Microscopic SEDIMENT EXAMINED, Urine RBC FEW H, Urine WBC RARE, Ur Epithelial Cells MANY H, Urine Bacteria FEW H, Urine Mucus FEW, Urine Hemoglobin NEG, Urine Glucose NEG, Urine Test NEGATIVE 07/21/16 164: Anion Gap 14, Estimated GFR 47 L, BUN/Creatinine Ratio 6.9 L, Glucose 83, Calcium 9.9, Total Bilirubin 0.6, Direct Bilirubin 0.4, AST 22, ALT 34, Alkaline Phosphatase 53, Total Protein 7.7, Albumin 4.8, Globulin 2.9, Albumin/Globulin Ratio 1.7, Amylase < 30 L, Lipase 32, CBC w Diff NO MAN DIFF REQ, RBC 4.01 L, MCV 92.6, MCH 30.9, RDW 15.0 H, MPV 7.1 L, Gran % 60.4, Lymphocytes % 31.0, Monocytes % 6.8, Eosinophils % 1.1, Basophils % 0.7, Absolute Granulocytes 4.7, Absolute Lymphocytes 2.4, Absolute Monocytes 0.5, Absolute Eosinophils 0.1, Absolute Basophils 0.1, PUBS MCHC 33.3 Departure Departure Disposition: HOME OR SELF CARE Condition: Stable Clinical Impression Primary Impression: Abdominal pain Qualifiers: Abdominal location: generalized Qualified Code: R10.84 - Generalized abdominal pain Referrals: RODRIGO DOYLE (PCP/Family) Additional Instructions: please be sure to attend your previously scheduled appointment with the senior pharmacy technician. Take Reglan as prescribed for nausea. Return for any worsening symptoms or concerns. Departure Forms: Customer Survey General Discharge Information Prescriptions: Current Visit Scripts Metoclopramide HCl (Reglan) 1 TAB PO 4 TIMES/DAY PRN nausea #12 TAB 30 minutes before meals and bedtime (JUSTIN YIP,JOSIAH) PA/FOREIGN EXCHANGE DEALER Co-Sign Statement Statement: ED Attending supervision documentation- [] I saw and evaluated the patient. I have also reviewed all the pertinent lab results and diagnostic results. I agree with the findings and the plan of care as documented in the PA's/FOREIGN EXCHANGE DEALER's documentation. x I have reviewed the ED Record and agree with the PA's/FOREIGN EXCHANGE DEALER's documentation. [] Additions or exceptions (if any) to the PAs/FOREIGN EXCHANGE DEALER's note and plan are summarized below: [] (DARYA GATICA,MARTA)
[2016-07-21] MEDS ORDERED: ATIVAN1 M1 PO (18:39)
[2016-07-21] MEDS ORDERED: FLUOXETINE HCL20 M2 PO (18:41)
[2016-07-21] MEDS ORDERED: BUSPIRONE HCL30 M1 PO (18:41)
[2016-07-21] MEDS ORDERED: BENZTROPINE MESY1 M1 PO ×2 (18:42→18:43)
[2016-07-21] MEDS ORDERED: CLONIDINE HCL0.1 MG PO ×2 (18:43)
[2016-07-21] MEDS ORDERED: QUETIAPINE FUM400 M1 PO (18:44)
[2016-07-21] MEDS ORDERED: AMBIEN10 M1 PO (18:44)
[2016-07-21] MEDS ORDERED: LEVOTHYROXINE75 MCG PO (18:45)
[2016-07-21] MEDS ORDERED: PANTOPRAZOLE SO40 M1 PO (18:45)
[2016-07-21] MEDS ORDERED: LINZESS145 MC1 PO (18:46)
[2016-07-21] MEDS ORDERED: PRAVASTATIN SOD20 M2 PO (18:46)
[2016-07-21] MEDS ORDERED: TRILIPIX135 M1 PO (18:47)
[2016-07-21] MEDS ORDERED: VITAMIN D2000 UNIT PO (18:49)
--- NOTE | 2016-07-21 19:55 | RADIOLOGY REPORT ---
EXAMINATION: XR ABDOMEN MULTIPLE VIEWS CLINICAL INDICATION: Constipation. COMPARISON: None TECHNIQUE: Supine upright abdomen FINDINGS: Moderate volume of scattered stool in the colon. Most of the stool is in the cecum and ascending colon at the splenic flexure. No dilated bowel loop. No significant air-fluid level on the upright view. No radiopaque urinary calculus. IMPRESSION: Moderate volume of stool in colon. No acute change of the bowel.
[2016-07-21] MEDS ORDERED: REGLAN10 M1 PO (21:02)
[2016-07-21 21:19] VITALS: BP 140/86
[2016-10-23] MEDS ORDERED: KETOROLAC TROME10 M1 PO (13:27)
[2016-10-23] MEDS ORDERED: ZOFRAN4 M2 PO (13:27)
== END 2016-07-21 21:22 ==
LOC: ERH 15:57
PROVIDERS: Emergency Medicine
DX: R10.10 Upper abdominal pain, unspecified (principal)
CPT/HCPCS: 74020; 81001; 81025; 96374; 96375; J1885; J2765

== ENCOUNTER 2016-07-30 13:27 | Emergency (ER) | payer OTHER ==
[~2016-07-30] VITALS: Ht 154.9 cm; Wt 93.0 kg
[~2016-07-30 13:27] MED LIST changes: +AMBIEN10 M1 PO; +ATIVAN1 M1 PO; +LEVOTHYROXINE75 MCG PO; +REGLAN10 M1 PO; +VITAMIN D2000 UNIT PO
--- NOTE | 2016-07-30 13:57 | ED GI/GU/ABDOMINAL COMPLAINT ---
History of Present Illness General Chief Complaint: Nausea, Vomiting, Diarrhea Stated Complaint: NAUSEA Source: patient, old records Exam Limitations: no limitations Vital Signs & Intake/Output Vital Signs & Intake/Output Vital Signs Date Time Temp Pulse Resp B/P Pulse O2 O2 Flow FiO2 Ox Delivery Rate 07/30 1551 96.3 70 18 130/80 97 Room Air 07/30 1344 96.5 81 18 129/86 96 Room Air Allergies Coded Allergies: Penicillins (Intermediate, HIVES 07/13/16) amoxicillin (Intermediate, HIVES 07/13/16) shellfish derived (Intermediate, HIVES 07/13/16) ciprofloxacin (From CIPRO) (Mild, RASH 07/13/16) guaifenesin (From MUCINEX) (Mild, RASH 07/13/16) dextromethorphan (ITCHY, RASH, HIVES 07/13/16) sulfamethoxazole (From BACTRIM) (HIVES 07/13/16) trimethoprim (From BACTRIM) (HIVES 07/13/16) Reconcile Medications Benztropine Mesylate 1 MG TABLET 1 TAB PO QAM MENTAL HEALTH (Reported) Benztropine Mesylate 1 MG TABLET 2 TAB PO QPM MENTAL HEALTH (Reported) Buspirone HCl 30 MG TABLET 1 TAB PO BID MENTAL HEALTH (Reported) Cholecalciferol (Vitamin D3) (Vitamin D) (Unknown Strength) CAPSULE (Unknown Dose) PO DAILY SUPPLEMENT (Reported) Clonidine HCl 0.1 MG TABLET 1 TAB PO QAM ANXIETY (Reported) Clonidine HCl 0.1 MG TABLET 3 TAB PO QPM ANXIETY (Reported) Fenofibric Acid (Trilipix) 135 MG CAPSULE.DR 1 CAP PO QAM CHOLESTEROL/ TRIGLYCERIDES (Reported) Fluoxetine HCl 20 MG CAPSULE 1 CAP PO QAM MENTAL HEALTH (Reported) Levothyroxine Sodium 75 MCG TABLET 1 TAB PO DAILY AC THYROID (Reported) Linaclotide (Linzess) 145 MCG CAPSULE 1 CAP PO QAM CONSTIPATION (Reported) Lorazepam (Ativan) 1 MG TABLET 1 TAB PO TID PRN ANXIETY (Reported) Metoclopramide HCl (Reglan) 10 MG TABLET 1 TAB PO 4 TIMES/DAY PRN nausea 30 minutes before meals and bedtime Oxycodone HCl/Acetaminophen (Percocet 5-325 MG Tablet) 5 MG-325 MG TABLET 1 TAB PO BID BREAKTHROUGH PAIN Pantoprazole Sodium 40 MG TABLET.DR 1 TAB PO QAM GI (Reported) Pravastatin Sodium 20 MG TABLET 1 TAB PO QPM CHOLESTEROL (Reported) Quetiapine Fumarate 400 MG TABLET 2 TAB PO QPM MENTAL HEALTH (Reported) Zolpidem Tartrate (Ambien) 10 MG TABLET 1 TAB PO QPM SLEEP (Reported) Triage Note: C/O ABDOMINAL PAIN WITH NAUSEA X [address] Ela GILBERT THIS WEEK, SCHEDULED FOR UPPER AND LOWER ENDOSCOPY. WAS PUT ON ZOFRAN AND HYCOSAMINE. UNABLE TO EAT OR DRINK. STATES SHE HAS HAD 1 BM IN THE PAST 4 WEEKS. Triage Nurses Notes Reviewed? yes LMP (ages 10-50): now ? n Is pt currently ? No Onset: Gradual Duration: week(s): (4), constant, waxing and waning Timing: recent history Quality/Severity: aching, cramping Severity Numbers: 6 Location: generalized abdomen Radiation: no radiation Activities at Onset: none Prior Abdominal Problems: similar symptoms No Modifying Factors: none Associated Symptoms: nausea/vomiting, constipation HPI: 46-year-old female with history of chronic abdominal pain presents emergency room complaining of exacerbation of her pain constant for the past 4 weeks associated with nausea. Pain is described as generalized nonradiating bloating aching cramping. She saw Dr. Gilbert this past week and is scheduled for a endoscopy colonoscopy in August. She was sent home with Levsin and Zofran which she's been taking without improvement. Patient states that she is only had one bowel movement over the past 3 weeks. No black or bloody stools no weight loss or change in her appetite. Patient states that normally Percocet has helped with her in the past for pain she's been seen twice earlier this month for similar symptoms. Her menstrual cycle began today she has a no urinary symptoms. She has not attempted to take any medications for her constipation (ANNA GAVIN) Past History Travel History Traveled to [place] past 21 day No Medical History Any Pertinent Medical History? 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 No (ANNA GAVIN) Review of Systems Review of Systems Constitutional: Reports: see HPI. All Other Systems: Reviewed and Negative Comments Review of systems: See HPI, All other systems negative. Constitutional, no chills no fever, no malaise HEENT: no sore throat no congestion, Cardiovascular: No chest pain , no palpitation , no orthopnea no ankle swelling Skin, no rashes, no change in skin Respiratory: No dyspnea no cough no sputum GI: nausea no vomiting, no diarrhea,constipation : No dysuria No hematuria, no frequency, no discharge Muscle skeletal: No joint pain, no joint swelling, no back pain Neurologic:no headache Psych: No stress Heme/endocrine: No bruising no bleeding Immunology: No lymphadenopathy (ANNA GAVIN) Physical Exam Physical Exam General Appearance: well developed/nourished, no apparent distress, alert, awake , comfortable Gastrointestinal: normal bowel sounds, soft, non-tender Comments: Well-developed well-nourished person in no acute distress HEENT: Normal EENT exam; PERRL, EOMI, HEAD is atraumatic. moist mucous membranes. Neck: Supple, normal range of motion Back: Nontender, no CVA tenderness. Full range of motion Cardiovascular: Regular rate and rhythms no murmurs rubs Respiratory: No respiratory distress. Patient speaking in full complete sentences. Breath sounds clear to auscultation bilaterally: NO W/R/R Abdomen: Soft, nontender nondistended, no appreciable organomegaly. Normal bowel sounds. No rebound/guarding, Extremity: No edema, full range of motion of extremities Neuro: Alert oriented x3, motor sensory normal, There were no obvious focal neurologic abnormalities. Skin: No appreciable rash on exposed skin, skin is warm and dry. Psych: Mood and affect is normal, memory and judgment is normal. Core Measures ACS in differential dx? No Severe Sepsis Present: No Septic Shock Present: No (ANNA GAVIN) Progress Differential Diagnosis: appendicitis, biliary colic, bowel obstruction, colon cancer, diverticulitis, ectopic , gastritis, hepatitis, hernia, inflamm bowel dis, intrauterine , peptic ulcer, PUD/GERD, perforated viscous, SBO, threatened AB, UTI/pyelo, ibs Plan of Care: Orders Procedure Date/time Status Saline Lock 07/30 1404 Active URINALYSIS 07/30 1404 Complete HUMAN BETA HCG SCREEN 07/30 1404 Complete COMPREHENSIVE METABOLIC PANEL 07/30 1404 Complete CBC WITHOUT DIFFERENTIAL 07/30 1404 Complete Laboratory Tests 07/30/16 1533: Urine Color YEL, Urine Clarity CLEAR, Urine pH 7.0, Ur Specific [place] 1.020, Urine Protein NEG, Urine Ketones NEG, Urine Nitrite NEG, Urine Bilirubin NEG, Urine Urobilinogen 1.0, Ur Leukocyte Esterase SMALL H, Ur Microscopic SEDIMENT EXAMINED, Urine RBC 3-5, Urine WBC 5-10 H, Ur Epithelial Cells MANY H, Urine Bacteria RARE H, Urine Mucus FEW, Urine Hemoglobin LARGE H, Urine Glucose NEG 07/30/16 1420: Anion Gap 8, Estimated GFR 47 L, BUN/Creatinine Ratio 10.0, Glucose 89, Calcium 10.2, Total Bilirubin 0.4, AST 21, ALT 29, Alkaline Phosphatase 48, Total Protein 7.3, Albumin 4.5, Globulin 2.8, Albumin/Globulin Ratio 1.6, Total Beta HCG NEGATIVE, CBC w Diff NO MAN DIFF REQ, RBC 3.93 L, MCV 93.2, MCH 31.0, RDW 14.3, MPV 7.8, Gran % 49.5, Lymphocytes % 38.9, Monocytes % 6.6, Eosinophils % 4.3, Basophils % 0.7, Absolute Granulocytes 3.0, Absolute Lymphocytes 2.3, Absolute Monocytes 0.4, Absolute Eosinophils 0.3, Absolute Basophils 0, PUBS MCHC 33.3 Old records including the patient's previous CAT scan and x-ray that was performed earlier this month was reviewed patient is resting, but this time case was discussed with Dr. Resendiz agrees with plan patient states that Percocet has helped with her pain in the past medications Zofran IV IV fluids 07/30/2016 3:06:57 PM discussed with the patient at length all of her lab results I discussed with her I do not believe the patient given her exam and lab findings requires any repeat imaging at this time which she is in agreement with pending urine analysis patient reports to feeling better with Percocet- 07/30/2016 4:22:14 PM patient has been reevaluated multiple times resting comfortably she's had no episodes of nausea vomiting here I discussed with the patient at length all of their results. I had an extensive conversation regarding need for close follow up with their primary care physician this week as well as return precautions. I answered all of their questions, they feel comfortable with the plan and follow-up care. I discussed the medications that they will receive with the patient. I gave them signs and symptoms that could indicate an adverse reaction. I have advised them to limit their activities until they can see how they respond to the medication. discussed the patient need to take MiraLAX to help with her constipation I discussed with her the risks of taking the Percocet can make her constipation worse however she states it is never done this before advise close follow-up with Dr. Gilbert, return anytime sooner with any concerns she feels comfortable plan xray 07/21 IMPRESSION: Moderate volume of stool in colon. No acute change of the bowel. DICTATED BY: FAHAD BAH MD DATE/TIME DICTATED:07/21/161949 INTERIOR WALL ASSEMBLER:MEREDITH DATE/TIME TRANSCRIBED:07/21/161949 ct 07/14/15: IMPRESSION: Circumferential thickening and pericolonic inflammatory changes surrounding the rectosigmoid colon. This finding is nonspecific but could reflect an infectious or inflammatory colitis. No additional acute findings are identified within the abdomen or pelvis. DICTATED BY: ALBER BOATENG MD DATE/TIME DICTATED:07/13/161834 INTERIOR WALL ASSEMBLER:MEREDITH DATE/TIME TRANSCRIBED:07/13/161834 (ANNA GAVIN) Initial ED EKG: none (ANNA GAVIN) Departure Departure Time of Disposition: 1611 Disposition: HOME OR SELF CARE Condition: Stable Clinical Impression Primary Impression: Chronic abdominal pain Referrals: RODRIGO DOYLE (PCP/Family) OFELIA GATICA,RICHELLE Velasquez Additional Instructions: Follow-up with your sales trainee Dr. Gilbert on Monday. Take the magnesium citrate you have at home. Percocet for breakthrough pain use caution as this is a narcotic addictive no driving or drinking alcohol while taking. Departure Forms: Customer Survey General Discharge Information Prescriptions: Current Visit Scripts Oxycodone HCl/Acetaminophen (Percocet 5-325 MG Tablet) 1 TAB PO BID #10 TAB (ANNA GAVIN) PA/ROBOTICS TESTING TECHNICIAN Co-Sign Statement Statement: ED Attending supervision documentation- [] I saw and evaluated the patient. I have also reviewed all the pertinent lab results and diagnostic results. I agree with the findings and the plan of care as documented in the PA's/ROBOTICS TESTING TECHNICIAN's documentation. [X] I have reviewed the ED Record and agree with the PA's/ROBOTICS TESTING TECHNICIAN's documentation. [] Additions or exceptions (if any) to the PAs/ROBOTICS TESTING TECHNICIAN's note and plan are summarized below: [] (NORA GATICA,SHARYN Grijalva)
[2016-07-30 14:40] LABS: ABSOLUTE BASOPHIL COUNT 0 /CUMM (0.0-0.2); ABSOLUTE EOSINOPHIL COUNT 0.3 /CUMM (0.0-0.7); ABSOLUTE LYMPH COUNT 2.3 /CUMM (1.2-3.4); ABSOLUTE MONOCYTE COUNT 0.4 /CUMM (0.10-0.60); BASOPHIL % 0.7 % (0.0-2.0); EOSINOPHIL % 4.3 % (0-5); GRANULOCYTE % 49.5 % (42.2-75.2); HEMATOCRIT 36.6 % (37-47); MEAN CORPUSCULAR HGB CONC 33.3 G/DL (33.0-37.0); MEAN CORPUSCULAR VOLUME 93.2 FL (81.0-99.0); MEAN PLATELET VOLUME 7.8 FL (7.4-10.4); PLATELET COUNT 278 /CUMM (130-400); RBC DISTRIBUTION WIDTH 14.3 % (11.5-14.5); RED BLOOD CELL CT 3.93 /CUMM (4.20-5.40)
[2016-07-30 15:51] VITALS: BP 130/80
[2016-07-30] MEDS ORDERED: PERCOCET 5-3251 EACH PO (16:14)
[2016-10-23] MEDS ORDERED: KETOROLAC TROME10 M1 PO (13:27)
[2016-10-23] MEDS ORDERED: ZOFRAN4 M2 PO (13:27)
== END 2016-07-30 16:19 ==
LOC: ERH 13:27
PROVIDERS: Physician Assistant Medical
DX: G89.29 Other chronic pain (principal); R10.84 Generalized abdominal pain
CPT/HCPCS: 81001; 96374; J2405

== ENCOUNTER 2016-08-09 19:22 | Emergency (ER) | payer OTHER ==
[~2016-08-09] VITALS: Ht 154.9 cm; Wt 90.7 kg
[2016-08-09 20:14] LABS: ABSOLUTE BASOPHIL COUNT 0 /CUMM (0.0-0.2); ABSOLUTE EOSINOPHIL COUNT 0.2 /CUMM (0.0-0.7); ABSOLUTE GRANULOCYTE CT 3.6 /CUMM (1.4-6.5); ABSOLUTE LYMPH COUNT 3.5 /CUMM (1.2-3.4); ABSOLUTE MONOCYTE COUNT 0.5 /CUMM (0.10-0.60); BASOPHIL % 0.4 % (0.0-2.0); EOSINOPHIL % 2.7 % (0-5); GRANULOCYTE % 46.5 % (42.2-75.2); HEMATOCRIT 37.2 % (37-47); MEAN CORPUSCULAR HGB 31.1 PG (27.0-31.0); MEAN CORPUSCULAR HGB CONC 33.6 G/DL (33.0-37.0); MEAN CORPUSCULAR VOLUME 92.6 FL (81.0-99.0); MEAN PLATELET VOLUME 7.6 FL (7.4-10.4); PLATELET COUNT 362 /CUMM (130-400); RBC DISTRIBUTION WIDTH 13.9 % (11.5-14.5); RED BLOOD CELL CT 4.01 /CUMM (4.20-5.40); WHITE BLOOD CELL COUNT 7.8 /CUMM (4.8-10.8)
--- NOTE | 2016-08-09 21:20 | ED GI/GU/ABDOMINAL COMPLAINT ---
History of Present Illness General Chief Complaint: Abdominal Pain/Flank Pain Stated Complaint: ABD PAIN N/V BLOOD IN STOOL Source: patient, old records Exam Limitations: no limitations Vital Signs & Intake/Output Vital Signs & Intake/Output Vital Signs Date Time Temp Pulse Resp B/P Pulse O2 O2 Flow FiO2 Ox Delivery Rate 08/09 2146 96 08/09 2145 97.7 76 20 133/72 96 Room Air 08/09 1942 97.9 82 18 122/81 96 Allergies Coded Allergies: Penicillins (Intermediate, HIVES 07/13/16) amoxicillin (Intermediate, HIVES 07/13/16) shellfish derived (Intermediate, HIVES 07/13/16) ciprofloxacin (From CIPRO) (Mild, RASH 07/13/16) guaifenesin (From MUCINEX) (Mild, RASH 07/13/16) dextromethorphan (ITCHY, RASH, HIVES 07/13/16) sulfamethoxazole (From BACTRIM) (HIVES 07/13/16) trimethoprim (From BACTRIM) (HIVES 07/13/16) Reconcile Medications Benztropine Mesylate 1 MG TABLET 1 TAB PO QAM MENTAL HEALTH (Reported) Benztropine Mesylate 1 MG TABLET 2 TAB PO QPM MENTAL HEALTH (Reported) Buspirone HCl 30 MG TABLET 1 TAB PO BID MENTAL HEALTH (Reported) Cholecalciferol (Vitamin D3) (Vitamin D) (Unknown Strength) CAPSULE (Unknown Dose) PO DAILY SUPPLEMENT (Reported) Clonidine HCl 0.1 MG TABLET 1 TAB PO QAM ANXIETY (Reported) Clonidine HCl 0.1 MG TABLET 3 TAB PO QPM ANXIETY (Reported) Fenofibric Acid (Trilipix) 135 MG CAPSULE.DR 1 CAP PO QAM CHOLESTEROL/ TRIGLYCERIDES (Reported) Fluoxetine HCl 20 MG CAPSULE 1 CAP PO QAM MENTAL HEALTH (Reported) Levothyroxine Sodium 75 MCG TABLET 1 TAB PO DAILY AC THYROID (Reported) Linaclotide (Linzess) 145 MCG CAPSULE 1 CAP PO QAM CONSTIPATION (Reported) Lorazepam (Ativan) 1 MG TABLET 1 TAB PO TID PRN ANXIETY (Reported) Metoclopramide HCl (Reglan) 10 MG TABLET 1 TAB PO 4 TIMES/DAY PRN nausea 30 minutes before meals and bedtime Ondansetron HCl (Zofran) 4 MG TABLET 1 TAB PO Q6-8P PRN NAUSEA Oxycodone HCl/Acetaminophen (Percocet 5-325 MG Tablet) 5 MG-325 MG TABLET 1 TAB PO BID BREAKTHROUGH PAIN Pantoprazole Sodium 40 MG TABLET. 1 TAB PO QAM GI (Reported) Pravastatin Sodium 20 MG TABLET 1 TAB PO QPM CHOLESTEROL (Reported) Quetiapine Fumarate 400 MG TABLET 2 TAB PO QPM MENTAL HEALTH (Reported) Zolpidem Tartrate (Ambien) 10 MG TABLET 1 TAB PO QPM SLEEP (Reported) Triage Note: PT TO ED C/O PAIN "IN THE WHOLE ABDOMEN" FOR A MONTH, COMES AND GOES, BUT CONSTANT FOR 2 DAYS. SEEN HERE FOR SAME PREVIOUSLY. YESTERDAY, SAW BLOOD IN STOOL "ALL IN THERE" DENIES SOB/DIZZINESS.+N/V FOR 2 DAYS. Triage Nurses Notes Reviewed? yes ? n Is pt currently ? No Onset: Abrupt Duration: week(s): (4), constant, waxing and waning Timing: recent history Quality/Severity: aching, cramping Severity Numbers: 5 Location: generalized abdomen Radiation: no radiation Activities at Onset: none Prior Abdominal Problems: similar symptoms No Modifying Factors: none Associated Symptoms: nausea/vomiting HPI: 36-year-old female history of chronic abdominal pain for which she's been seen numerous times in this ER for the same presents complaining of generalized crampy abdominal pain nonradiating for the past 1 month associated with nausea and vomiting. She states that she's noticed a small little blood in her bowel movements over the past 2 days. She's been taking Zofran with improvement. She 's been taking Levsin, Bentyl without improvement, she is scheduled to see her GI on August 26 for colonoscopy. No fever no chills no chest pain shortness of breath no urinary symptoms (ANNA GAVIN) Past History Travel History Traveled to [place] past 21 day No Medical History Any Pertinent Medical History? 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 No (ANNA GAVIN) Review of Systems Review of Systems Constitutional: Reports: see HPI. All Other Systems: Reviewed and Negative Comments Review of systems: See HPI, All other systems negative. Constitutional, no chills no fever, no malaise HEENT: no sore throat no congestion, no ear pain Cardiovascular: No chest pain , no palpitation , no orthopnea no ankle swelling Skin, no jaundice no rashes, no change in skin Respiratory: No dyspnea no cough no sputum no hemoptysis GI: nausea vomiting, no diarrhea, no bloating/constipation : No dysuria No hematuria, Muscle skeletal: No joint pain, no joint swelling, no back pain, no neck pain, Neurologic: , no headache Psych: No stress Heme/endocrine: No bruising no bleeding Immunology: No lymphadenopathy (ANNA GAVIN) Physical Exam Physical Exam General Appearance: well developed/nourished, alert, awake Gastrointestinal: soft Comments: Well-developed well-nourished person in no acute distress HEENT: Normal EENT exam; PERRL, EOMI, . HEAD is atraumatic. moist mucous membranes. Neck: Supple, normal range of motion Back: Nontender, no CVA tenderness. Full range of motion Cardiovascular: Regular rate and rhythms no murmurs rubs Respiratory: Chest nontender.There were no bony deformities, no asymmetry. No respiratory distress. Patient speaking in full complete sentences. Breath sounds clear to auscultation bilaterally: NO W/R/R Abdomen: Soft, nontender nondistended, no appreciable organomegaly. Normal bowel sounds. No rebound/guarding, Extremity: No edema, full range of motion of extremities Neuro: Alert oriented x3, motor sensory normal, cranial nerves II through XII grossly intact. There were no obvious focal neurologic abnormalities. Skin: No appreciable rash on exposed skin, skin is warm and dry. Psych: Mood and affect is normal, memory and judgment is normal. Core Measures ACS in differential dx? No Severe Sepsis Present: No Septic Shock Present: No (ANNA GAVIN) Progress Differential Diagnosis: appendicitis, biliary colic, bowel obstruction, colon cancer, cholecystitis, diverticulitis, ectopic , endometritis, esophageal varices, gastritis, hepatitis, hernia, hemorrhoids, ischemic bowel, inflamm bowel dis, intrauterine , kidney stone, Jaquelin-Kevin tear, pancreatitis, peptic ulcer, PUD/GERD, perforated viscous, SBO, threatened AB Plan of Care: Orders Procedure Date/time Status URINE 08/09 1948 Complete URINALYSIS 08/09 1948 Complete LIPASE 08/09 1948 Complete COMPREHENSIVE METABOLIC PANEL 08/09 1948 Complete CBC WITHOUT DIFFERENTIAL 08/09 1948 Complete AMYLASE 08/09 1948 Complete Laboratory Tests 08/09/161957: Anion Gap 12, Estimated GFR 47 L, BUN/Creatinine Ratio 7.7, Glucose 88, Calcium 10.1, Total Bilirubin 0.4, AST 27, ALT 39, Alkaline Phosphatase 49, Total Protein 7.8, Albumin 4.7, Globulin 3.1, Albumin/Globulin Ratio 1.5, Amylase < 30 L, Lipase 41, CBC w Diff NO MAN DIFF REQ, RBC 4.01 L, MCV 92.6, MCH 31.1 H, RDW 13.9, MPV 7.6, Gran % 46.5, Lymphocytes % 44.4, Monocytes % 6.0, Eosinophils % 2.7, Basophils % 0.4, Absolute Granulocytes 3.6, Absolute Lymphocytes 3.5 H, Absolute Monocytes 0.5, Absolute Eosinophils 0.2, Absolute Basophils 0, PUBS MCHC 33.6, Urine Color YEL, Urine Clarity HAZY H, Urine pH 6.0, Ur Specific [place] 1.025, Urine Protein NEG, Urine Ketones NEG, Urine Nitrite NEG, Urine Bilirubin NEG, Urine Urobilinogen 1.0, Ur Leukocyte Esterase NEG, Ur Microscopic SEDIMENT EXAMINED, Urine WBC RARE, Ur Epithelial Cells MANY H, Urine Bacteria FEW H, Urine Mucus FEW, Urine Hemoglobin NEG, Urine Glucose NEG, Urine Test NEGATIVE Patient has been seen numerous times here in the past old records were reviewed including the patient's previous CAT scan and x-rays of the abdomen which were performed less than 1 month ago I discussed with her at length all of her lab results the patient was reevaluated multiple times she has not had any episodes of vomiting or diarrhea here in the department tolerating by mouth advise she have close follow up with GI, persistent for Zofran was provided answered all her questions she feels comfortable this plan case was discussed with Dr. Jaime agrees with plan (ANNA GAVIN) Initial ED EKG: none (ANNA GAVIN) Departure Departure Time of Disposition: 2140 Disposition: HOME OR SELF CARE Condition: Stable Clinical Impression Primary Impression: Chronic abdominal pain Referrals: RODRIGO DOYLE (PCP/Family) Additional Instructions: FOLLOW UP WITH YOUR MEETING PLANNER AND PRIMARY CARE PHYSICIAN. ZOFRAN FOR NAUSEA. BLAND DIET, RETURN WITH ANY CONCERNS. THIS [facility]ENT [facility] Departure Forms: Customer Survey General Discharge Information Prescriptions: Current Visit Scripts Ondansetron HCl (Zofran) 1 TAB PO Q6-8P PRN NAUSEA #10 TAB (ANNA GAVIN) PA/BODY MASKER Co-Sign Statement Statement: ED Attending supervision documentation- [] I saw and evaluated the patient. I have also reviewed all the pertinent lab results and diagnostic results. I agree with the findings and the plan of care as documented in the PA's/BODY MASKER's documentation. [x] I have reviewed the ED Record and agree with the PA's/BODY MASKER's documentation. [] Additions or exceptions (if any) to the PAs/BODY MASKER's note and plan are summarized below: [] (GERHARD GATICA,NICOLETTE)
[2016-08-09] MEDS ORDERED: ZOFRAN4 M2 PO (21:43)
[2016-08-09 21:46] VITALS: BP 133/72
[2016-10-23] MEDS ORDERED: ZOFRAN4 M2 PO (13:27)
[2016-10-23] MEDS ORDERED: KETOROLAC TROME10 M1 PO (13:27)
== END 2016-08-09 21:49 ==
LOC: ERH 19:22
PROVIDERS: Emergency Medicine
DX: R10.84 Generalized abdominal pain (principal)
CPT/HCPCS: 81001; 81025